=== PATIENT | female | born 1990 | race Caucasian/White ===

== ENCOUNTER 2019-01-06 23:51 | Emergency (ER) | payer MEDICAID, OTHER ==
[~2019-01-06] VITALS: Ht 152.4 cm; Wt 52.6 kg
[2019-01-06 23:54] VITALS: BP 140/91
--- NOTE | 2019-01-06 23:54 | NUR ---
Pt ambulated to bed 8.
--- NOTE | 2019-01-06 23:56 | NUR ---
28 Y/O F PREESENTED TO ED WITH C/O LOWER BACK PAIN AND DYSURIA X2 DAYS. 9/10 PAIN, THROBBING AND CONSTANT. TENDERNESS TO LOWER BACK. DENIES HEMATURIA. EXPERIENCING BLE TINGLING. CAP REFILL <3. SKIN DRY AND INTACT. ABLE TO FEEL SENSATION IN BLE. PEDAL PULSES PRESENT, 2+. BEDRAIL X1 UP, BED IN LOWEST POSTION. ERMD NOTIFIED. WILL CONTINUE TO MONITOR.
[2019-01-07] MEDS ORDERED: KETOROLAC 60 MG/2 ML VIAL IM ONE (00:30)
== END 2019-01-07 01:22 | disposition home or self-care (01) ==
LOC: MED 23:51
DX: M54.5 Low back pain (principal)
CPT/HCPCS: 81002; 81025; 96372; 99283; J1885

== ENCOUNTER 2020-02-22 05:45 | Emergency (ER) | payer SELFPAY ==
[~2020-02-22] VITALS: Ht 149.9 cm; Wt 59.0 kg
[2020-02-22 06:07] VITALS: BP 135/94
== END 2020-02-22 06:44 | disposition home or self-care (01) ==
LOC: MED 05:45
DX: R21 Rash and other nonspecific skin eruption (principal); L29.9 Pruritus, unspecified
CPT/HCPCS: 99283

== ENCOUNTER 2020-04-15 19:40 | Emergency (ER) | payer SELFPAY ==
[~2020-04-15] VITALS: Ht 152.4 cm; Wt 51.3 kg
[2020-04-15 19:44] VITALS: BP 122/90
--- NOTE | 2020-04-15 19:49 | NUR ---
URINE SPECIMEN PROVIDED. PT AMBULATED LOBBY TO A/W BED.
[2020-04-15] MEDS ORDERED: KETOROLAC 30 MG/ML VIAL IM ONE (20:35)
--- NOTE | 2020-04-15 21:07 | NUR ---
Patient discharged with v/s stable. Written and verbal after care instructions given and explained. Patient alert, oriented and verbalized understanding of instructions. Ambulatory with steady gait. All questions addressed prior to discharge. ID band removed. Patient advised to follow up with PMD. Rx of keflex, motrin, flexiril given. Patient educated on indication of medication including possible reaction and side effects. Opportunity to ask questions provided and answered.
[2020-04-15 21:08] VITALS: BP 122/90
== END 2020-04-15 21:07 | disposition home or self-care (01) ==
LOC: MED 19:40
DX: S39.012A Strain of muscle, fascia and tendon of lower back, initial encounter (principal); S86.912A Strain of unspecified muscle(s) and tendon(s) at lower leg level, left leg, initial encounter; N39.0 Urinary tract infection, site not specified; R03.0 Elevated blood-pressure reading, without diagnosis of hypertension; X58.XXXA Exposure to other specified factors, initial encounter; Y93.89 Activity, other specified; Y92.89 Other specified places as the place of occurrence of the external cause; Y99.8 Other external cause status
CPT/HCPCS: 81002; 81025; 87086; 96372; 99283; J1885; 87186

== ENCOUNTER 2021-08-25 12:40 | Emergency (ER) | payer OTHER ==
[~2021-08-25] VITALS: Ht 148.6 cm; Wt 62.6 kg
[2021-08-25 12:58] VITALS: BP 140/81
--- NOTE | 2021-08-25 13:01 | NUR ---
pt triaged and sent back into lobby
[2021-08-25] MEDS ORDERED: BACITRACIN OINT 500 UNITS/GM PKT TP ONE (13:20)
[2021-08-25] MEDS ORDERED: LIDOCAINE MPF 1% 10 MG/ML VIAL INJ ONE ×2 (13:20)
[2021-08-25] MEDS ORDERED: IBUPROFEN 600 MG TAB PO ONE (13:20)
[2021-08-25] MEDS ORDERED: IBUP-2213 PO (13:32)
[2021-08-25] MEDS ORDERED: BACI1PAC6 TP (13:32)
[2021-08-25 13:44] VITALS: BP 109/58
--- NOTE | 2021-08-25 13:44 | NUR ---
Patient discharged with v/s stable. Written and verbal after care instructions given and explained. Patient alert, oriented and verbalized understanding of instructions. Ambulatory with steady gait. All questions addressed prior to discharge. ID band removed. Patient advised to follow up with PMD. Rx of bacitracin, motrin given. Patient educated on indication of medication including possible reaction and side effects. Opportunity to ask questions provided and answered.
== END 2021-08-25 13:44 | disposition home or self-care (01) ==
LOC: MED 12:40
DX: S61.301A Unspecified open wound of left index finger with damage to nail, initial encounter (principal); Z79.899 Other long term (current) drug therapy; Z98.890 Other specified postprocedural states; W23.0XXA Caught, crushed, jammed, or pinched between moving objects, initial encounter; Y93.89 Activity, other specified; Y92.89 Other specified places as the place of occurrence of the external cause; Y99.8 Other external cause status
CPT/HCPCS: 11730; 99284; J2001

== ENCOUNTER 2021-11-06 19:08 | Emergency (ER) | payer OTHER ==
[~2021-11-06] VITALS: Ht 149.9 cm; Wt 54.9 kg
[~2021-11-06 19:08] MED LIST: BACI1PAC6 TP; IBUP-2213 PO
[2021-11-06 19:32] VITALS: BP 123/79
--- NOTE | 2021-11-06 19:39 | NUR ---
TO LOBBY FOLLOWING TRIAGE
--- NOTE | 2021-11-06 21:17 | NUR ---
PT AMBULATED TO BED 07
[2021-11-06] MEDS ORDERED: IBUP-1842 PO (22:46)
[2021-11-06] MEDS ORDERED: ROB PO (22:46)
[2021-11-06 23:13] VITALS: BP 115/72
--- NOTE | 2021-11-06 23:13 | NUR ---
Patient discharged with v/s stable. Written and verbal after care instructions given and explained. Patient alert, oriented and verbalized understanding of instructions. Ambulatory with steady gait. All questions addressed prior to discharge. ID band removed. Patient advised to follow up with PMD. Rx of MOTRIN AND ROBITUSSIN given. Opportunity to ask questions provided and answered.
== END 2021-11-06 23:13 | disposition home or self-care (01) ==
LOC: MED 19:08
DX: R05.9 Cough, unspecified (principal); Z20.822 Contact with and (suspected) exposure to COVID-19; Z79.899 Other long term (current) drug therapy
CPT/HCPCS: 36415; 71045; 87804; 99284; C9803; Q0092; U0003

== ENCOUNTER 2022-07-02 15:34 | Emergency (ER) | payer OTHER ==
[~2022-07-02] VITALS: Ht 149.9 cm; Wt 62.6 kg
[~2022-07-02 15:34] MED LIST changes: +IBUP-1842 PO; +ROB PO
[2022-07-02 15:43] VITALS: BP 123/76
[2022-07-02] MEDS ORDERED: LORA1T1237 PO (17:12)
[2022-07-02] MEDS ORDERED: BENZ-300 PO (17:12)
[2022-07-02] MEDS ORDERED: AZEL6SOL6 OP (17:12)
[2022-07-02] MEDS ORDERED: [UNRECOGNIZED DRUG - CODE] NS (17:12)
--- NOTE | 2022-07-02 17:15 | NUR ---
TO ER BED 8
[2022-07-02 17:33] VITALS: BP 121/88
--- NOTE | 2022-07-02 17:33 | NUR ---
Patient discharged with v/s stable. Written and verbal after care instructions given. Patient alert, oriented and verbalized understanding of instructions. Ambulatory with steady gait. All questions addressed prior to discharge. ID band removed. Patient advised to follow up with PMD. Rx of Dymista, Azelastine Hydrochloride, Cepacol Sore Throat Lozenges and Claritin D given. Opportunity to ask questions provided and answered. WORK NOTE HANDED TO PATIENT.
--- NOTE | 2022-07-02 17:42 | NUR ---
Chart checked and completed. The patient's care was reviewed and supervised by Jazmin Resendiz RN.
== END 2022-07-02 17:33 | disposition home or self-care (01) ==
LOC: MED 15:34
DX: R06.7 Sneezing (principal); J30.9 Allergic rhinitis, unspecified; J02.8 Acute pharyngitis due to other specified organisms; B97.89 Other viral agents as the cause of diseases classified elsewhere; Z79.899 Other long term (current) drug therapy; Z79.1 Long term (current) use of non-steroidal anti-inflammatories (NSAID); Z79.2 Long term (current) use of antibiotics
CPT/HCPCS: 99283